=== PATIENT | male | born 1945 | race Caucasian/White ===

== ENCOUNTER 2022-12-24 23:45 | Emergency (ER) | payer MEDICARE, MEDICAID, SELFPAY ==
[2022-12-24 23:48] VITALS: BP 117/74; PULSE 76; RESP 16; TEMP 36.3; O2SAT 94; BMI 23.1
--- NOTE | 2022-12-24 23:52 | W.ED.GENADLT ---
HPI - General Adult General: Chief complaint: General Medical Stated complaint: needs trach replaced Time Seen by Provider: 12/24/22 23:49 Source: EMS Mode of arrival: EMS History of Present Illness: 77-year-old male who is here from [facility] they state that they checked on him his trach and fell out been out for roughly 2 hours has had this trach for quite some time history of paraplegia. Patient has no complaints at this time halfway with thrown the trach when called EMS Associated symptoms: Deny chest pain, dyspnea, rash or vomiting Review of Systems Const: Denies: fever(s) ENMT: Denies: mouth pain Card: Denies: chest pain Resp: Denies: dyspnea GI: Denies: vomiting Skin/Breast: Denies: rash Physical Exam Const: COMMON NORMALS: no acute distress and alert HENMT: COMMON NORMALS: normocephalic and atraumatic HEAD & SCALP: normocephalic and atraumatic Eye: COMMON NORMALS: conjunctivae normal CONJUNCTIVA: Yes conjunctivae normal Neck/C-Spine: OTHER: Stoma is intact no bleeding or discharge Chest: COMMONS NORMALS: normal inspection of the chest Resp: COMMON NORMALS: normal respiratory effort and clear to auscultation bilaterally AUSCULTATION: clear to auscultation bilaterally Cardio: COMMON NORMALS: regular rate and regular rhythm RATE: regular rate RHYTHM: regular rhythm Extremity: COMMON NORMALS: normal to inspection Neuro: SENSORIUM/ORIENTATION: Yes alert Psych: COMMON NORMALS: cooperative Skin: COMMON NORMALS: no rashes or lesions noted GENERAL SKIN EXAM: no rashes or lesions noted Course Vital Signs: Vital signs: Vital Signs Temperature 97.4 F L 12/24/22 23:48 Pulse Rate 76 12/24/22 23:48 Respiratory Rate 16 12/24/22 23:48 Blood Pressure 117/74 12/24/22 23:48 Pulse Oximetry 94 12/24/22 23:48 MDM - General Adult Medical Decision Making Patient presents here with dislodged tracheostomy. 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 Discharge Plan Discharge Patient Disposition: Xfer Short-Term Hosp Clinical Impression: Tracheostomy complication Condition: Stable Referrals: Diana Lees SENIOR HARDWARE DESIGN ENGINEER [Primary Care Provider] - 1-3 days Discharge Diet: Advance as tolerated Discharge Activity: Resume usual activity Patient Instructions: Tracheostomy Care (ED) Coding Level of Care Code ED Mobile Lab Technician for Henrry Damon
--- NOTE | 2022-12-25 00:52 | XRR_ITS ---
PROCEDURE INFORMATION: Exam: XR Chest Exam date and time: 12/25/2022 1:12 AM Age: 77 years old Clinical indication: Shortness of breath; Prior surgery; Surgery date: 1-6 months; Surgery type: Trache; Additional info: SOB TECHNIQUE: Imaging protocol: Radiologic exam of the chest. Views: 1 view. COMPARISON: No relevant prior studies available. FINDINGS: Lungs: Lungs are well expanded. Left basilar opacity. Pleural spaces: Small left pleural effusion. No pneumothorax. Heart/Mediastinum: Enlarged cardiac silhouette status post TAVR. Mild tortuosity of the thoracic aorta. Bones/joints: Healed/healing right posterolateral rib fracture deformities. XR/XR chest 1V portable [id number] IMPRESSION: Small left pleural effusion with left basilar opacity which may be the basis of atelectasis although superimposed aspiration/pneumonia in this region possible.
[2022-12-25 01:17] LABS: Basophils % 0.3 %; Eosinophils # 0.9 10^3/uL (0.0-0.8); Eosinophils % 6.2 %; Hematocrit 30.6 % (37-53); Lymphocytes # 1.3 10^3/uL (0.8-4.8); Lymphocytes % 8.8 %; Mean Corpuscular HGB Conc 30.1 g/dL (30-55); Mean Corpuscular Hemoglobin 28.1 pg (27-33); Mean Corpuscular Volume 93.6 fl (82-101); Mean Platelet Volume 9.3 fL (7.4-10.4); Monocytes # 1.1 10^3/uL (0.2-0.9); Monocytes % 7.8 %; Neutrophils # 11.02 10^3/uL (1.8-7.7); Nucleated Red Blood Cells % 0 %; Platelet Count 286 10^3/cmm (157-399); Red Blood Count 3.27 10^6/uL (3.85-5.65); Red Cell Distribution Width 18.3 % (12.1-15.1); White Blood Count 14.49 10^3/uL (3.29-11.43)
[2022-12-25 01:33] LABS: Alanine Aminotransferase 18 U/L (0-41); Albumin Level 3.7 g/dL (3.5-5.2); Alkaline Phosphatase 102 U/L (40-130); Anion Gap 11.3 (5-19); Aspartate Amino Transferase 17 U/L (0-40); Blood Urea Nitrogen 27 mg/dL (8-23); Calcium 9.9 mg/dL (8.5-10.5); Carbon Dioxide 28 mmol/L (22-29); Chloride 101 mmol/L (98-107); Glucose 108 mg/dL (65-115); Osmolality Calculated 288 mOsm/kg (285-295); Potassium 4.3 mmol/L (3.5-5.1); Sodium 136 mmol/L (136-145); Total Bilirubin 0.3 mg/dL (0.15-1.2); Total Protein 8.7 g/dL (6.6-8.7)
== END 2022-12-25 01:45 | disposition short-term general hospital (02) ==
PROVIDERS: Emergency Provider Emergency Medicine; PCP Nurse Practitioner Family
DX: J95.09 Other tracheostomy complication (principal)
CPT/HCPCS: 71045; 80053; 85025; 99284